=== PATIENT | female | born 1955 | race African-American/Black ===

== ENCOUNTER 2017-05-15 13:20 | Inpatient (IN) | payer MEDICARE, OTHER, SELFPAY ==
--- NOTE | ~2017-05-15 | CN ---
Consultation Report [facility] [address] [place]. [address] NAME: ANNIA PERRIN : 53 STATUS : ADM Deepika PAT#: [id number] AGE: 62 ADM/REG DATE : 05/15/17 MR#: [id number] REPORT SERV DATE: 05/16/17 DICTATED BY: RONN KELLER DATE: 05/15/17 REPORT STATUS : Draft TRANSCRIBED BY: MODL DATE: 05/15/17 NEPHROLOGY CONSULT NOTE DATE OF CONSULTATION: HISTORY OF PRESENT ILLNESS: Ms. Perrin is a 62-year-old black female, dialysis patient at [facility], admitted after passing out at [facility] in the [facility]. She was documented to be asystole, CPR was started there. Chest compressions and EMS arrived and brought her to the emergency room at [facility]. She is asymptomatic at present except for some tender chest wall and she is found to be quite anemic, hemoglobin of 7.1, which is chronic. PAST MEDICAL HISTORY: Solitary kidney, post nephrectomy due to renal cell carcinoma; SLE, on steroids and Myfortic; congestive heart failure, diastolic, of which she has been trying to avoid beta blockers because of bradycardia. She has a history of atrial fibrillation, rapid ventricular response, for which she is on Coumadin, followed by Dr. Nicholson; recent Enterococcal faecalis urinary tract infection in January of this year, followed by Pseudomonas urinary tract infection later that same month; chronic anemia; stool guaiacs negative last two weeks ago at the clinic. REVIEW OF SYSTEMS: No fever or chills. She has been weak and tired lately, attributed to a low hemoglobin. Dialysis on Friday, Friday, and Friday and went to dialysis yesterday without problems. Stool guaiacs were negative there last week. SOCIAL HISTORY: No tobacco. No alcohol. Is single. FAMILY HISTORY: Positive for stroke and congestive heart failure. ALLERGIES: SULFA, QUINOLONES, FLECAINIDE, MAGNESIUM OXIDE, MYCOPHENOLATE SODIUM, FISH OIL, PREDNISONE 1 MG DAILY, PREGABALIN, MESTINON, MULTIVITAMINS, AND COUMADIN 4 MG DAILY. PHYSICAL EXAMINATION: VITAL SIGNS: On arrival to the emergency room, blood pressure is documented today at 127/38, heart rate of 109; it has subsequently gone up, her last blood pressure was 167/63, heart rate of 101; respirations 16, temperature 97.8, 98% saturated on room air. GENERAL: She is alert and oriented x3, cooperative, no acute distress. Does not remember the event. Her family members with her says she was waiting for the ride and sitting down, became quite lightheaded and said she felt like she was going to pass out. Quickly later head back, the nurse at the counter was called, she came over, could not feel the pulse, began chest compressions and brought the patient back. As far as I know, no cardioversion was performed. Taken to the emergency room and is tender over chest wall where the CPR was performed. LUNGS: Clear. CARDIOVASCULAR: Without murmur, gallops, or rubs. Consultation Report [address] [place]. [address] NAME: ANNIA PERRIN : 53 STATUS : ADM Deepika PAT#: [id number] AGE: 62 ADM/REG DATE : 05/15/17 MR#: [id number] REPORT SERV DATE: 05/16/17 DICTATED BY: RONN KELLER DATE: 05/15/17 REPORT STATUS : Draft TRANSCRIBED BY: ELICIA DATE: 05/15/17 ABDOMEN: Soft, benign. Bowel sounds are present. EXTREMITIES: No edema. Left upper arm AV fistula with good bruit and thrill. NEUROLOGIC: Intact, oriented x3. Does not remember the events of syncopal episode. 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 Sodium 144, potassium 3.9, chloride 105, CO2 of 30, BUN of 48, creatinine 4.4, blood sugar 106, repeat 89, calcium 8.4, magnesium 1.8. White count is 3.6, hemoglobin is 7, hematocrit 21, platelet count 162,000. INR was 2.2. EKG shows sinus bradycardia, first-degree AV block. ASSESSMENT: 1. Syncopal, could be because of anemia hemoglobin of 7.1 or hypoxia 88% saturated on room air or arrhythmias. History of atrial fibrillation, rapid ventricular response, and bradycardia in the past, on flecainide, per Dr. Nicholson. He is also tapering off her steroids, it is down to 1 mg a day. 2. End-stage renal disease, on Friday, Friday, and Friday at [facility], we will dialyze tomorrow. 3. Anemia. We will transfuse on dialysis tomorrow. 4. Systemic lupus erythematosus, on steroids and CellCept. 5. Recurrent urinary tract infections. 6. Diastolic congestive heart failure. PLAN: Transfuse on hemodialysis tomorrow. Cardiology to see. Asymptomatic at present, but we will keep in bed rest until Cardiology sees. ANNETTE/ELICIA Ronn Keller M.D. / [id number] CC: Ronn Keller M.D.
--- NOTE | ~2017-05-15 | CN ---
Consultation Report [address] [place]. [address] NAME: ANNIA BENAVIDEZ : 53 STATUS : ADM Deepika PAT#: [id number] AGE: 62 ADM/REG DATE : 05/15/17 MR#: [id number] REPORT SERV DATE: 05/15/17 DICTATED BY: DIMAS ADAMS DATE: 05/15/17 REPORT STATUS : Draft TRANSCRIBED BY: MODL DATE: 05/15/17 CONSULTATION DATE OF CONSULTATION: 05/15/2017 PRIMARY INNER TUBE CUTTER: Aristeo Nicholson M.D., Ph.D, F.A.C.C. REASON FOR CONSULTATION: Questionable arrest, questionable syncope. HISTORY OF PRESENT ILLNESS: Ms. Benavidez is a pleasant 62-year-old female, with a history of PVCs, PAF currently in sinus rhythm on Coumadin, diabetes, idiopathic hypotension, and ESRD on hemodialysis, who presented to [facility] for an elective INR check today. At [facility], per her report, she started to feel sick as though she was hypoglycemic and then passed out. Per report, she received CPR for brief periods of time and then woke up without any complaints whatsoever. She states that she has been feeling fine and is taking all of her medications. She currently denies having any chest pains or pressures (outside of area of compression). She also denies having any palpitations, dizziness, or loss of consciousness otherwise in the recent past. She is due for dialysis tomorrow. She denies having any other complaints at this time. The details of her arrest and code were not provided and are not available on the chart unfortunately for review. ALLERGIES: 1. SULFA. 2. QUINOLONE. 3. CIPROFLOXACIN. 4. TORSEMIDE. 5. SPIRONOLACTONE. FAMILY HISTORY: Noncontributory for premature cardiovascular disease. SOCIAL HISTORY: The patient lives at home alone and functions independently under normal circumstances. She denies drinking alcohol, smoking, or doing drugs. PAST MEDICAL HISTORY: As above. HOME MEDICATIONS: 1. Norvasc. 2. Cardura. 3. Flecainide. 4. Magnesium. 5. Myfortic. 6. Fish oil. 7. Deltasone. 8. Lyrica. Consultation Report [address] [place]. [address] NAME: ANNIA BENAVIDEZ : 53 STATUS : ADM Deepika PAT#: [id number] AGE: 62 ADM/REG DATE : 05/15/17 MR#: [id number] REPORT SERV DATE: 05/15/17 DICTATED BY: DIMAS ADAMS DATE: 05/15/17 REPORT STATUS : Draft TRANSCRIBED BY: ELICIA DATE: 05/15/17 9. Mestinon. 10.Vitamin D. 11.Coumadin. REVIEW OF SYSTEMS: As above, all systems otherwise negative. PHYSICAL EXAMINATION: VITAL SIGNS: Blood pressure 152/56, pulse 60s sinus rhythm, afebrile. GENERAL: Well-developed, well-nourished, no acute distress. NEURO: Awake, alert and oriented x3; no focal deficits, appropriate mood. HEENT: Moist mucous membranes, anicteric sclerae, no nasal discharge. NECK: No JVD, no carotid bruit. LUNGS: Clear to auscultation bilaterally, no wheezes, rales or rhonchi. CARDIOVASCULAR: Regular rate and rhythm. Normal S1 and S2. A 3/6 systolic ejection murmur throughout the precordium. ABDOMEN: Soft, non-tender, non-distended, no rebound or guarding. EXTREMITIES: No pitting edema, normal distal pulses. SKIN: Warm, dry and intact; no rash. PERTINENT TEST FINDINGS: Hemoglobin 7.1, platelets 162. Chest x-ray negative for acute cardiopulmonary process. Glucose at 1219 hours this afternoon 89, creatinine 4.4. Troponin less than 0.02. Potassium 3.9, magnesium 1.81. EKG with sinus bradycardia and first degree AV delay, no ischemic ST/T changes. IMPRESSION AND PLAN: Ms. Benavidez is a pleasant 62-year-old female, with above stated history, who presents after losing consciousness in [facility] from unclear etiology, and receiving very brief CPR, now feeling well without complaints. She has negative troponin, no symptoms, and telemetry that demonstrates only sinus rhythm in the 60s, with a normal EKG. Accordingly, I do not believe she has an acute cardiac process going on at this time, or as because of her episode in [facility]. Nevertheless, it will be helpful to continue to monitor on cardiac telemetry for arrhythmic events. In addition, it will be helpful to check an echocardiogram at this time. I questioned whether she may have had a hypoglycemic event versus a hypotensive episode (in particular given her history of idiopathic hypotension). Notably, she is significantly anemic with a hemoglobin of 7.1, this may very well have been sufficient to result in brief syncope in [facility] with a poorly palpated pulse. I understand that she is due for a transfusion with dialysis tomorrow per Renal. VR/MODL Dimas Adams MD Consultation Report [address] [place]. [address] NAME: ANNIA BENAVIDEZ : 53 STATUS : ADM Deepika PAT#: [id number] AGE: 62 ADM/REG DATE : 05/15/17 MR#: [id number] REPORT SERV DATE: 05/15/17 DICTATED BY: DIMAS ADAMS DATE: 05/15/17 REPORT STATUS : Draft TRANSCRIBED BY: ELICIA DATE: 05/15/17 / [id number] CC: Ronn Quiles M.D.
[2017-05-15 13:19] LABS: BASOPHILS 0.3 %; BASOPHILS ABSOLUTE 0.01 10/3/uL (0.0-0.16); EOSINOPHILS 1.1 %; EOSINOPHILS ABSOLUTE 0.04 10/3/uL (0.0-0.53); ER CBC TAT 0 Hrs 03 Mins; IMMATURE GRANULOCYTES 0.3 %; IMMATURE GRANULOCYTES ABSOLUTE 0.01 10/3/uL (0.0-0.11); LYMPHOCYTES ABSOLUTE 0.72 10/3/uL (0.67-4.30); MEAN CORPUS HGB CONC 31.8 g/dL (32.0-36.0); MEAN CORPUSCULAR HEMOGLOB 27.6 pg (26.0-34.0); MONOCYTES 11.7 %; MONOCYTES ABSOLUTE 0.42 10/3/uL (0.21-1.20); NEUTROPHILS 66.6 %; PLATELET COUNT 162 10/3/uL (150-400); RBC DISTRIBUTION WIDTH 16.3 % (12.0-16.0); WHITE BLOOD CELLS 3.6 10/3/uL (4.5-10.5)
[2017-05-15 13:20] LABS: HEMATOCRIT 21.4 % (36.0-48.0); HEMOGLOBIN 7.1 g/dL (12.0-16.0); MANUAL DIFF NO %; RED CELL COUNT 2.46 10/6/uL (4.0-5.6)
[~2017-05-15 13:20] MED LIST: APRES25 PO; APRES50 PO; BETHAN10B PO; BETIMOL0.5 % OP; BUM1 PO; C2 PO; CALTRA600D PO; CARDCD180 PO; CARDU2 PO; CARDU4 PO; CARDURA1 MG PO; CARDURA8 MG PO; CAT1 PO; CEFT5 PO; CELLCEPT5 PO; COUMADIN6 MG PO; DEMA20 PO; DEXILANT DR PO; DIALYSIS IV; DIOV160 PO; EDECRIN 25 MG T25 MG PO; FISH OIL1200 MG PO; FISH-EPA1000 MG PO; FLECAINIDE50 MG PO; GLUCOTROL5 PO; GLUCXL2.5 PO; HCTZ25B PO; INTEGRA IRON PO; ISORDTAB5 PO; ISOSORB DIN30 MG PO; JANTOVEN4 MG PO; KLOR-CON M1010 MEQ PO; LIOR10 PO; LYRICA75 PO; MAGOX4 PO; MYFORTIC360 MG PO; NEUR300 PO; NORV10 PO; NUIRONCAP PO; OTC VITAMIN D PO; P1 PO; P10 PO; P5 PO; PYRID180 PO; PYRID60 PO; STOOL SOFTEN100 MG PO; TANDEM OR; TEG200 PO; TEKTURNA HCT1 TAB PO; TESS PO; TIMOLOL GEL0.25 % OP; TIMOLOL GEL0.5 % OPH; VESICARE5 PO; VITAMIN D31000 UNIT PO; Z100 PO; Z300 PO; [UNRECOGNIZED DRUG - CODE] PO; [UNRECOGNIZED DRUG - CODE] PO; [UNRECOGNIZED DRUG - CODE] SL; [UNRECOGNIZED DRUG - REMARK]
[2017-05-15 13:27] LABS: INTERNATIONAL NORMAL RATI 2.2 UNITS (-); PARTIAL THROMBO TIME 32.6 SEC (22.5-37.2); PROTIME (NOT ORD) 24.5 SEC (12.0-14.5)
[2017-05-15 13:36] LABS: BUN (BLOOD UREA NITROGEN) 48 MG/DL (6-23); CALCIUM, SERUM 8.4 MG/DL (8.5-10.4); CHEST PAIN PROFILE TAT 0 Hrs 20 Mins; CHLORIDE, SERUM 105 MMOL/L (96-112); CO2 (CARBON DIOXIDE) 30 MMOL/L (24-34); POTASSIUM, SERUM 3.9 MMOL/L (3.5-5.3); SODIUM, SERUM 144 MMOL/L (135-148); TROPONIN I <0.02 NG/ML (<0.05)
[2017-05-15 13:37] LABS: CREATININE 4.43 MG/DL (0.55-1.02); GFR AFRICAN AMERICAN 11 ML/MIN (>=60); GFR NON AFRICAN AMERICAN 10 ML/MIN (>=60); GLUCOSE, SERUM 106 MG/DL (60-99)
[2017-05-15 19:19] LABS: INTERNATIONAL NORMAL RATI 2.3 UNITS (-); PROTIME (NOT ORD) 25.3 SEC (12.0-14.5)
[2017-05-16 05:19] LABS: INTERNATIONAL NORMAL RATI 2.4 UNITS (-); PROTIME (NOT ORD) 25.6 SEC (12.0-14.5)
[2017-05-16 08:55] LABS: BASOPHILS 0.2 %; BASOPHILS ABSOLUTE 0.01 10/3/uL (0.0-0.16); EOSINOPHILS 0.5 %; EOSINOPHILS ABSOLUTE 0.02 10/3/uL (0.0-0.53); IMMATURE GRANULOCYTES 0.5 %; IMMATURE GRANULOCYTES ABSOLUTE 0.02 10/3/uL (0.0-0.11); LYMPHOCYTES 17.2 %; LYMPHOCYTES ABSOLUTE 0.71 10/3/uL (0.67-4.30); MEAN CORPUS HGB CONC 32.3 g/dL (32.0-36.0); MEAN CORPUSCULAR HEMOGLOB 27.4 pg (26.0-34.0); MEAN CORPUSCULAR VOLUME 84.8 fL (80-100); MEAN PLATELET VOLUME 10.4 fL (9.2-13.0); MONOCYTES 6.1 %; MONOCYTES ABSOLUTE 0.25 10/3/uL (0.21-1.20); NEUTROPHILS 75.5 %; NEUTROPHILS ABSOLUTE 3.11 10/3/uL (2.02-8.40); PLATELET COUNT 154 10/3/uL (150-400); RBC DISTRIBUTION WIDTH 16.6 % (12.0-16.0); WHITE BLOOD CELLS 4.1 10/3/uL (4.5-10.5)
[2017-05-16 08:59] LABS: HEMATOCRIT 19.5 % (36.0-48.0); HEMOGLOBIN 6.3 g/dL (12.0-16.0)
[2017-05-16 09:00] LABS: MANUAL DIFF NO %
[2017-05-16 09:06] LABS: ALBUMIN 3.1 G/DL (3.5-5.0); BUN (BLOOD UREA NITROGEN) 60 MG/DL (6-23); CALCIUM, SERUM 8.2 MG/DL (8.5-10.4); CHLORIDE, SERUM 108 MMOL/L (96-112); CO2 (CARBON DIOXIDE) 29 MMOL/L (24-34); GFR AFRICAN AMERICAN 9 ML/MIN (>=60); GFR NON AFRICAN AMERICAN 8 ML/MIN (>=60); GLUCOSE, SERUM 74 MG/DL (60-99); PHOSPHORUS, SERUM 3.5 MG/DL (2.5-4.5); POTASSIUM, SERUM 4.6 MMOL/L (3.5-5.3); SODIUM, SERUM 144 MMOL/L (135-148)
[2017-05-17 05:09] LABS: INTERNATIONAL NORMAL RATI 2.4 UNITS (-); PROTIME (NOT ORD) 25.8 SEC (12.0-14.5)
[2017-05-17 08:17] LABS: BASOPHILS 0.2 %; BASOPHILS ABSOLUTE 0.01 10/3/uL (0.0-0.16); EOSINOPHILS 1.7 %; EOSINOPHILS ABSOLUTE 0.09 10/3/uL (0.0-0.53); IMMATURE GRANULOCYTES 0.4 %; IMMATURE GRANULOCYTES ABSOLUTE 0.02 10/3/uL (0.0-0.11); LYMPHOCYTES 16.9 %; MEAN CORPUS HGB CONC 33.3 g/dL (32.0-36.0); MEAN CORPUSCULAR HEMOGLOB 27.7 pg (26.0-34.0); MEAN CORPUSCULAR VOLUME 83.2 fL (80-100); MEAN PLATELET VOLUME 11.1 fL (9.2-13.0); MONOCYTES 8.3 %; MONOCYTES ABSOLUTE 0.44 10/3/uL (0.21-1.20); NEUTROPHILS 72.5 %; NEUTROPHILS ABSOLUTE 3.85 10/3/uL (2.02-8.40); PLATELET COUNT 153 10/3/uL (150-400); WHITE BLOOD CELLS 5.3 10/3/uL (4.5-10.5)
[2017-05-17 08:26] LABS: HEMATOCRIT 35.7 % (36.0-48.0); HEMOGLOBIN 11.9 g/dL (12.0-16.0); MANUAL DIFF NO %; RED CELL COUNT 4.29 10/6/uL (4.0-5.6)
[2017-05-17 08:29] LABS: ALBUMIN 3.6 G/DL (3.5-5.0); ALKALINE PHOSPHATASE 62 U/L (45-117); CALCIUM, SERUM 8.9 MG/DL (8.5-10.4); CHLORIDE, SERUM 106 MMOL/L (96-112); CO2 (CARBON DIOXIDE) 26 MMOL/L (24-34); DIRECT BILIRUBIN 0.1 MG/DL (0.0-0.4); GFR AFRICAN AMERICAN 11 ML/MIN (>=60); GFR NON AFRICAN AMERICAN 10 ML/MIN (>=60); GLUCOSE, SERUM 78 MG/DL (60-99); INDIRECT BILIRUBIN(NOT ORDER) 0.3 MG/DL (0.1-0.9); PHOSPHORUS, SERUM 3.3 MG/DL (2.5-4.5); POTASSIUM, SERUM 4.4 MMOL/L (3.5-5.3); SGOT(AST) 19 U/L (5-40); SGPT(ALT) 23 U/L (5-65); SODIUM, SERUM 138 MMOL/L (135-148); TOTAL BILIRUBIN 0.4 MG/DL (0-1.2); TOTAL PROTEIN 6.9 G/DL (6.0-8.5)
[2017-05-17 08:30] LABS: BUN (BLOOD UREA NITROGEN) 52 MG/DL (6-23); CREATININE 4.47 MG/DL (0.55-1.02)
[2017-05-17 08:38] LABS: PLATELET ESTIMATE ADQ (ADEQUATE)
[2017-05-18 04:44] LABS: BASOPHILS 0.2 %; BASOPHILS ABSOLUTE 0.01 10/3/uL (0.0-0.16); EOSINOPHILS 2.7 %; EOSINOPHILS ABSOLUTE 0.14 10/3/uL (0.0-0.53); HEMATOCRIT 35.5 % (36.0-48.0); HEMOGLOBIN 11.6 g/dL (12.0-16.0); IMMATURE GRANULOCYTES 0.4 %; IMMATURE GRANULOCYTES ABSOLUTE 0.02 10/3/uL (0.0-0.11); LYMPHOCYTES ABSOLUTE 1.03 10/3/uL (0.67-4.30); MEAN CORPUS HGB CONC 32.7 g/dL (32.0-36.0); MEAN CORPUSCULAR HEMOGLOB 27.6 pg (26.0-34.0); MEAN CORPUSCULAR VOLUME 84.5 fL (80-100); MEAN PLATELET VOLUME 11.7 fL (9.2-13.0); MONOCYTES 7.4 %; MONOCYTES ABSOLUTE 0.38 10/3/uL (0.21-1.20); NEUTROPHILS 69.3 %; NEUTROPHILS ABSOLUTE 3.57 10/3/uL (2.02-8.40); PLATELET COUNT 165 10/3/uL (150-400); RBC DISTRIBUTION WIDTH 17.1 % (12.0-16.0); WHITE BLOOD CELLS 5.2 10/3/uL (4.5-10.5)
[2017-05-18 04:45] LABS: MANUAL DIFF NO %
[2017-05-18 04:51] LABS: INTERNATIONAL NORMAL RATI 2.7 UNITS (-); PROTIME (NOT ORD) 28.2 SEC (12.0-14.5)
[2017-05-18 04:54] LABS: ALBUMIN 3.6 G/DL (3.5-5.0); BUN (BLOOD UREA NITROGEN) 77 MG/DL (6-23); CALCIUM, SERUM 8.9 MG/DL (8.5-10.4); CHLORIDE, SERUM 105 MMOL/L (96-112); CO2 (CARBON DIOXIDE) 28 MMOL/L (24-34); CREATININE 5.78 MG/DL (0.55-1.02); GFR AFRICAN AMERICAN 8 ML/MIN (>=60); GFR NON AFRICAN AMERICAN 7 ML/MIN (>=60); GLUCOSE, SERUM 71 MG/DL (60-99); PHOSPHORUS, SERUM 4.3 MG/DL (2.5-4.5); POTASSIUM, SERUM 4.8 MMOL/L (3.5-5.3); SODIUM, SERUM 140 MMOL/L (135-148)
[2017-05-18 04:59] LABS: PLATELET ESTIMATE ADQ (ADEQUATE)
[2017-05-18 05:02] LABS: ELLIPTOCYTES 1+ (3-10/OIF) (0-2/OIF); POIKILOCYTOSIS 1+ (5-10/OIF) (0-5/OIF)
[2017-08-10] MEDS ORDERED: NORV10 PO (16:40)
[2017-08-10] MEDS ORDERED: CARDU4 PO ×2 (16:42)
[2017-08-10] MEDS ORDERED: FLECAINIDE50 MG PO (16:43)
[2017-08-10] MEDS ORDERED: MYFORTIC360 MG PO (16:43)
[2017-08-10] MEDS ORDERED: P1 PO (16:44)
[2017-08-10] MEDS ORDERED: FISH-EPA1000 MG PO (16:44)
[2017-08-10] MEDS ORDERED: PYRID180 PO (16:44)
[2017-08-10] MEDS ORDERED: LYRICA75 PO (16:44)
[2017-08-10] MEDS ORDERED: MAGOX4 PO (16:44)
[2017-08-10] MEDS ORDERED: COUMADIN4 MG PO (16:45)
[2017-08-10] MEDS ORDERED: C1 PO (16:46)
== END 2017-05-18 16:13 | disposition home or self-care (01) | DRG 811 ==
LOC: ER 13:20 → CDU1 15:15 → CDU2 16:09 → 5SO 05-18 09:33
PROVIDERS: Emergency Medicine; Internal Medicine Nephrology
PROC: 5A12012 Performance of Cardiac Output, Single, Manual (ICD-10-PCS; principal; 2017-05-15)
PROC: 5A1D00Z (ICD-10-PCS; 2017-05-16)
PROC: 30233N1 Transfusion of Nonautologous Red Blood Cells into Peripheral Vein, Percutaneous Approach (ICD-10-PCS; 2017-05-16)
DX: D64.9 Anemia, unspecified (principal); N18.6 End stage renal disease; I50.32 Chronic diastolic (congestive) heart failure; M32.9 Systemic lupus erythematosus, unspecified; E11.22 Type 2 diabetes mellitus with diabetic chronic kidney disease; I49.3 Ventricular premature depolarization; I48.0 Paroxysmal atrial fibrillation; Z79.01 Long term (current) use of anticoagulants; Z87.440 Personal history of urinary (tract) infections; Z88.2 Allergy status to sulfonamides; Z88.0 Allergy status to penicillin; Z99.2 Dependence on renal dialysis; Z85.528 Personal history of other malignant neoplasm of kidney; Z90.5 Acquired absence of kidney; Z98.890 Other specified postprocedural states; Z88.8 Allergy status to other drugs, medicaments and biological substances; Z79.899 Other long term (current) drug therapy
CPT/HCPCS: 36415; 71010; 80048; 80069; 80076; 82272; 82962; 83615; 83735; 84484; 85025; 85610; 85730; 86850; 86900; 86901; 86920; 93005; 93306; 99291; A9270-GY; G0257; J0360; J3010; P9016; P9047